=== PATIENT | female | born 1955 | race Caucasian/White ===

== ENCOUNTER → 2017-09-15 | Day surgery (SDC) | payer OTHER ==
[~2017-09-15] VITALS: Ht 165.1 cm; Wt 61.2 kg
--- NOTE | 2017-09-15 12:04 | Operative Report ---
Operative/Inv Procedure Report Surgery Date: 09/15/17 Name of Procedure: Open reduction internal fixation left distal radius fracture intra-articular 3 or more pieces Pre-Operative Diagnosis: Comminuted left distal radius fracture intra-articular Post-Operative Diagnosis: Same Estimated Blood Loss: none Surgeon/Vacuum Extractor Operator: Zeke BENITEZ,Leonardo LE Anesthesia: laryngeal mask airway IV Fluids: See anesthesia record Implants: Arthrex volar distal radius plate Drains: None Specimens: None Tourniquet: 45 minutes Complications: None Condition: Stable Operative Indication: Patient is a 62-year-old female who sustained a comminuted displaced intra- articular distal radius fracture. She tried conservative treatment with casting and closed reduction however after 1 week her fracture had reduced and the distal radius had shortened. She was indicated for surgical intervention for roman catholic of alignment and length of the wrist. Risks and benefits of procedure were discussed with the patient in detail. A skilled setting and was necessary and provided by physician assistant signal maintainer Sesar Paredes weighted with retraction limb positioning and component assembly throughout the case. Operative/Procedure Note Note: Once informed consent was obtained and the correct limb was identified the patient was brought to the operating placed on table in supine position. After administration of general endotracheal anesthesia patient had a tourniquet placed around the left upper extremity and left upper quadrant was prepped and draped in usual sterile fashion. To begin the procedure volar incision was made on the left forearm. Sharp dissection was carried out through skin and subcutaneous tissue. The flexor carpi radialis tendon sheath was identified and incised. The interval between brachioradialis and flexor carpi radialis was developed. Care was taken to identify and protect the radial artery. The intermediate muscle layer fascia was incised and blunt dissection was used to identify the pronator quadratus muscle belly over the distal radius. The pronator was released from its radial insertion with Bovie cautery and then a periosteal elevator was used to retracted ulnarly. The fracture site was identified. There had been some callus formation in the interval between the fracture and surgery. This was removed with a rongeur and curettes. Once this was done were able to provisionally reduce the distal radius restoring the length. A K wire was placed provisionally hold the reduction. The narrow left volar distal radius plate from the Arthrex set was chosen and placed onto the distal fragment. Screws of appropriate length were placed through the distal holes of the plate and into the radial styloid for fixation purposes once this was done we were then able to pull traction on the wrist in order to get ultimate final length and the proximal portion of the plate was then fixed to the proximal radial shaft with a BB tack pin. X-rays in the AP and lateral planes with the mini C-arm fluoroscopy confirmed reduction of the fracture and roman catholic of the length. Once this was done a 3.5 cortical screws placed to proximal torsion of the plate for fixation purposes finally the final 2 holes on the proximal portion of plate were filled with locking screws of appropriate length. Final x-rays confirmed reduction and alignment. The wound was copiously irrigated with sterile saline. The subcutaneous tissues were then closed with 3-0 Vicryl interrupted sutures and the skin was closed with 3-0 nylon interrupted sutures. A sterile dressing and small splint was applied and the patient was awakened taken recovery in stable condition.
== END ==
LOC: STS 01:38
DX: S52.572A Other intraarticular fracture of lower end of left radius, initial encounter for closed fracture (principal); W18.30XA Fall on same level, unspecified, initial encounter; M96.1 Postlaminectomy syndrome, not elsewhere classified; M19.90 Unspecified osteoarthritis, unspecified site; Z87.891 Personal history of nicotine dependence
CPT/HCPCS: C1713; J0690; J2250